=== PATIENT | male | born 1980 | race Caucasian/White ===

== ENCOUNTER 2018-04-20 18:09 | Inpatient (IN) | payer OTHER ==
[2018-04-20] MEDS ORDERED: NACL 0.9% 3 ML SYG IV (19:30)
[2018-04-20] MEDS ORDERED: ZOLPIDEM 5 MG TAB PO (19:30)
[2018-04-20] MEDS ORDERED: ACETAMINOPHEN 325 MG TAB PO (19:30)
[2018-04-20] MEDS: PIPER-TAZO 3.375 GM IV (PMX) 100 ML IVPB (20:13)
[2018-04-20] MEDS: SOD CHLORIDE 0.9% 1,000 ML IV (20:13)
[2018-04-20] MEDS: morphine 2 MG INJ IV (21:27)
[2018-04-20] MEDS: ONDANSETRON 4 MG INJ IV (21:27)
[2018-04-20] MEDS: HYDROCODONE/APAP (5/325) TAB PO (23:39)
[2018-04-21] MEDS: PIPER-TAZO 3.375 GM IV (PMX) 100 ML IVPB ×5 (00:25→23:16)
[2018-04-21] MEDS: morphine 2 MG INJ IV ×7 (03:42→22:00)
[2018-04-21] MEDS: SOD CHLORIDE 0.9% 1,000 ML IV ×2 (05:06→06:23)
[2018-04-21 05:40] LABS: ADD MAN DIFF? NO
[2018-04-21 05:41] LABS: BASOPHILS % 0.2 % (0.0-2.0); EOSINOPHILS # 0.1 10^3/ul (0.0-0.5); EOSINOPHILS % 0.6 % (0.0-7.0); HEMOGLOBIN 14.5 g/dl (14.0-18.0); LYMPHOCYTES # 1.5 10^3/ul (0.8-2.9); LYMPHOCYTES % 10.1 % (15.0-51.0); MEAN CORPUSCULAR HEMOGLOBIN 32.1 pg (29.0-33.0); MEAN CORPUSCULAR HGB CONC 35.4 g/dl (32.0-37.0); MEAN CORPUSCULAR VOLUME 90.7 fl (82.0-101.0); MONOCYTE # 1.5 10^3/ul (0.3-0.9); NEUTROPHIL # 11.7 10^3/ul (1.6-7.5); NEUTROPHILS % 78.6 % (39.0-77.0); PLATELET COUNT 204 10^3/UL (140-415); RED BLOOD COUNT 4.52 10^6/ul (4.70-6.10); RED CELL DISTRIBUTION WIDTH 12.2 % (11.5-14.5)
[2018-04-21 05:41] LABS: WHITE BLOOD COUNT 14.8 10^3/ul (4.8-10.8)
[2018-04-21] MEDS: HYDROCODONE/APAP (5/325) TAB PO (06:52)
[2018-04-21 07:02] LABS: ALANINE AMINOTRANSFERASE 32 IU/L (13-69); ALBUMIN 3.8 g/dl (3.3-4.9); ALBUMIN/GLOBULIN RATIO 1.15; ALKALINE PHOSPHATASE 69 IU/L (42-121); ANION GAP 16 (8-16); ASPARTATE AMINO TRANSFERASE 20 IU/L (15-46); BILIRUBIN,INDIRECT 1.5 mg/dl (0-1.1); BILIRUBIN,TOTAL 1.5 mg/dl (0.2-1.3); BLOOD UREA NITROGEN 10 mg/dl (7-20); CARBON DIOXIDE 24 mmol/L (21-31); CHLORIDE 104 mmol/L (97-110); CREATININE 0.83 mg/dl (0.61-1.24); GLUCOSE 97 mg/dl (70-220); MAGNESIUM 1.8 mg/dl (1.7-2.5); PHOSPHORUS 4.5 mg/dl (2.5-4.9); POTASSIUM 3.6 mmol/L (3.5-5.1); SODIUM 140 mmol/L (135-144); TOTAL PROTEIN 7.1 g/dl (6.1-8.1)
[2018-04-21] MEDS: DEXTROSE 5%-0.45% NACL 1,000 ML IV ×3 (11:57→21:08)
[2018-04-21] MEDS: NYSTATIN 30 GM POWDER BTL TOP ×2 (14:43→21:08)
[2018-04-21 15:46] LABS: LACTIC ACID 0.6 mmol/L (0.5-2.0)
[2018-04-22] MEDS: morphine 2 MG INJ IV ×6 (00:41→19:27)
[2018-04-22] MEDS: DEXTROSE 5%-0.45% NACL 1,000 ML IV ×4 (04:10→18:42)
[2018-04-22] MEDS: PIPER-TAZO 3.375 GM IV (PMX) 100 ML IVPB (05:12)
[2018-04-22 05:40] LABS: ADD MAN DIFF? NO
[2018-04-22 05:42] LABS: WHITE BLOOD COUNT 11.6 10^3/ul (4.8-10.8)
[2018-04-22 05:42] LABS: BASOPHILS % 0.2 % (0.0-2.0); EOSINOPHILS # 0.1 10^3/ul (0.0-0.5); EOSINOPHILS % 1.1 % (0.0-7.0); HEMATOCRIT 39.2 % (42.0-52.0); HEMOGLOBIN 13.5 g/dl (14.0-18.0); LYMPHOCYTES # 1.8 10^3/ul (0.8-2.9); LYMPHOCYTES % 15.3 % (15.0-51.0); MEAN CORPUSCULAR HEMOGLOBIN 31.7 pg (29.0-33.0); MEAN CORPUSCULAR HGB CONC 34.4 g/dl (32.0-37.0); MEAN PLATELET VOLUME 9.8 fl (7.4-10.4); MONOCYTE # 1.3 10^3/ul (0.3-0.9); MONOCYTES % 10.9 % (0.0-11.0); NEUTROPHIL # 8.4 10^3/ul (1.6-7.5); NEUTROPHILS % 72.1 % (39.0-77.0); PLATELET COUNT 196 10^3/UL (140-415); RED BLOOD COUNT 4.26 10^6/ul (4.70-6.10); RED CELL DISTRIBUTION WIDTH 11.9 % (11.5-14.5)
[2018-04-22 06:20] LABS: ALANINE AMINOTRANSFERASE 25 IU/L (13-69); ALBUMIN 3.7 g/dl (3.3-4.9); ALBUMIN/GLOBULIN RATIO 1.27; ALKALINE PHOSPHATASE 59 IU/L (42-121); ANION GAP 11 (8-16); ASPARTATE AMINO TRANSFERASE 20 IU/L (15-46); BILIRUBIN,INDIRECT 1.1 mg/dl (0-1.1); BILIRUBIN,TOTAL 1.1 mg/dl (0.2-1.3); BLOOD UREA NITROGEN 8 mg/dl (7-20); CARBON DIOXIDE 27 mmol/L (21-31); CHLORIDE 105 mmol/L (97-110); CREATININE 0.87 mg/dl (0.61-1.24); GLUCOSE 101 mg/dl (70-220); POTASSIUM 3.5 mmol/L (3.5-5.1); SODIUM 139 mmol/L (135-144); TOTAL PROTEIN 6.6 g/dl (6.1-8.1)
[2018-04-22] MEDS: NYSTATIN 30 GM POWDER BTL TOP ×2 (09:03→20:50)
[2018-04-22] MEDS: CIPROFLOXACIN 400MG/D5W 200 ML IVPB ×2 (11:24→20:49)
[2018-04-22] MEDS: NYSTATIN 15 GM CR TOP ×2 (13:00→20:50)
[2018-04-22] MEDS: HYDROCODONE/APAP (5/325) TAB PO (14:10)
[2018-04-22] MEDS: metroNIDAZOLE 500 MG/NS (PMX) 100 ML IVPB ×2 (14:12→22:14)
[2018-04-23] MEDS: morphine 2 MG INJ IV ×3 (04:30→17:03)
[2018-04-23] MEDS: DEXTROSE 5%-0.45% NACL 1,000 ML IV ×2 (04:32→17:02)
[2018-04-23] MEDS: metroNIDAZOLE 500 MG/NS (PMX) 100 ML IVPB ×3 (05:26→22:10)
[2018-04-23 06:11] LABS: ADD MAN DIFF? NO
[2018-04-23 06:14] LABS: BASOPHILS % 0.4 % (0.0-2.0); EOSINOPHILS # 0.2 10^3/ul (0.0-0.5); EOSINOPHILS % 2.1 % (0.0-7.0); HEMATOCRIT 38.1 % (42.0-52.0); HEMOGLOBIN 13.3 g/dl (14.0-18.0); LYMPHOCYTES # 1.6 10^3/ul (0.8-2.9); LYMPHOCYTES % 19.5 % (15.0-51.0); MEAN CORPUSCULAR HEMOGLOBIN 32.1 pg (29.0-33.0); MEAN CORPUSCULAR HGB CONC 34.9 g/dl (32.0-37.0); MEAN PLATELET VOLUME 9.7 fl (7.4-10.4); MONOCYTES % 12.4 % (0.0-11.0); NEUTROPHIL # 5.2 10^3/ul (1.6-7.5); NEUTROPHILS % 65.2 % (39.0-77.0); PLATELET COUNT 193 10^3/UL (140-415); RED BLOOD COUNT 4.14 10^6/ul (4.70-6.10); RED CELL DISTRIBUTION WIDTH 11.9 % (11.5-14.5)
[2018-04-23 06:42] LABS: ANION GAP 11 (8-16); BLOOD UREA NITROGEN 6 mg/dl (7-20); CALCIUM 9.1 mg/dl (8.4-10.2); CARBON DIOXIDE 26 mmol/L (21-31); CHLORIDE 107 mmol/L (97-110); CREATININE 0.69 mg/dl (0.61-1.24); GLUCOSE 99 mg/dl (70-220); MAGNESIUM 2.1 mg/dl (1.7-2.5); PHOSPHORUS 3.5 mg/dl (2.5-4.9); POTASSIUM 3.7 mmol/L (3.5-5.1); SODIUM 140 mmol/L (135-144)
[2018-04-23] MEDS: NYSTATIN 15 GM CR TOP ×2 (08:52→21:04)
[2018-04-23] MEDS: NYSTATIN 30 GM POWDER BTL TOP ×2 (08:53→21:04)
[2018-04-23] MEDS: CIPROFLOXACIN 400MG/D5W 200 ML IVPB ×2 (08:53→21:00)
[2018-04-23] MEDS: BARIUM SULF 2% 450 ML BTL (BERRY SMOOTHIE) PO (12:44)
[2018-04-23] MEDS: IOHEXOL 300MG/ML 150 ML BTL (14:58)
[2018-04-23] MEDS: SOD CHLORIDE 0.9% 100 ML (14:58)
[2018-04-24] MEDS: DEXTROSE 5%-0.45% NACL 1,000 ML IV ×2 (02:03→06:10)
[2018-04-24] MEDS: metroNIDAZOLE 500 MG/NS (PMX) 100 ML IVPB (05:15)
[2018-04-24 06:49] LABS: ADD MAN DIFF? NO
[2018-04-24 06:57] LABS: WHITE BLOOD COUNT 8.6 10^3/ul (4.8-10.8)
[2018-04-24 06:57] LABS: BASOPHILS % 0.2 % (0.0-2.0); EOSINOPHILS # 0.2 10^3/ul (0.0-0.5); EOSINOPHILS % 1.7 % (0.0-7.0); HEMATOCRIT 42.3 % (42.0-52.0); HEMOGLOBIN 14.8 g/dl (14.0-18.0); LYMPHOCYTES # 2.3 10^3/ul (0.8-2.9); LYMPHOCYTES % 26.3 % (15.0-51.0); MEAN CORPUSCULAR HEMOGLOBIN 31.8 pg (29.0-33.0); MEAN PLATELET VOLUME 9.8 fl (7.4-10.4); MONOCYTE # 1.1 10^3/ul (0.3-0.9); MONOCYTES % 12.3 % (0.0-11.0); NEUTROPHIL # 5.1 10^3/ul (1.6-7.5); NEUTROPHILS % 59.2 % (39.0-77.0); PLATELET COUNT 279 10^3/UL (140-415); RED BLOOD COUNT 4.65 10^6/ul (4.70-6.10); RED CELL DISTRIBUTION WIDTH 11.8 % (11.5-14.5)
[2018-04-24 07:21] LABS: ANION GAP 17 (8-16); BLOOD UREA NITROGEN 11 mg/dl (7-20); CALCIUM 9.9 mg/dl (8.4-10.2); CARBON DIOXIDE 23 mmol/L (21-31); CHLORIDE 105 mmol/L (97-110); CREATININE 0.81 mg/dl (0.61-1.24); GLUCOSE 102 mg/dl (70-220); MAGNESIUM 2.1 mg/dl (1.7-2.5); PHOSPHORUS 3.8 mg/dl (2.5-4.9); POTASSIUM 3.9 mmol/L (3.5-5.1); SODIUM 141 mmol/L (135-144)
[2018-04-24] MEDS: NYSTATIN 30 GM POWDER BTL TOP (09:17)
[2018-04-24] MEDS: NYSTATIN 15 GM CR TOP (09:17)
[2018-04-24] MEDS: CIPROFLOXACIN 500 MG TAB PO (09:24)
[2018-04-24] MEDS ORDERED: metroNIDAZOLE 500 MG TAB PO (14:00)
== END 2018-04-24 11:15 | disposition home or self-care (01) | DRG 872 ==
LOC: 2NE 18:09
DX: A41.9 Sepsis, unspecified organism (principal); K57.20 Diverticulitis of large intestine with perforation and abscess without bleeding; A04.72 Enterocolitis due to Clostridium difficile, not specified as recurrent; F17.210 Nicotine dependence, cigarettes, uncomplicated; B35.6 Tinea cruris
CPT/HCPCS: 74177; 80048; 80053; 83036; 83605; 83735; 84100; 85025; 87040; 87045; 87075